=== PATIENT | male | born 2000 | race African-American/Black ===

== ENCOUNTER 2018-10-29 07:22 | Emergency (ER) | payer OTHER ==
[2018-10-29] MEDS ORDERED: Ibuprofen 200 MG TAB ONE (07:39)
--- NOTE | 2018-10-29 09:14 | RAD ---
EXAM: XR Foot Lt 3 View STANDARD PROVIDED CLINICAL HISTORY: Pain FINDINGS: There is no evidence for fracture or other acute osseous abnormality. Alignment appears anatomic. Tali nt spaces appear preserved. IMPRESSION: No evidence for an acute osseous abnormality. If there is persistent clinical concern, conservative m anagement and follow-up imaging advised.
--- NOTE | 2018-10-29 09:19 | RAD ---
LEFT ANKLE 3 VIEWS: Date: 10/29/18 INDICATION: 18-year-old male that jumped from the second story of a building and felt a pop in his ankle. IMPRESSION: No acute fracture or subluxation is evident. POS: [facility]
== END 2018-10-29 09:28 ==
LOC: EDBD 07:22 → ERS 07:22
DX: S93.402A Sprain of unspecified ligament of left ankle, initial encounter (principal); W17.89XA Other fall from one level to another, initial encounter